=== PATIENT | male | born 1960 | race Caucasian/White ===

== ENCOUNTER 2021-03-09 10:09 | Emergency (ER) | payer OTHER, SELFPAY ==
[2021-03-09 10:16] VITALS: BP 126/92; PULSE 101; RESP 16; TEMP 36.3; O2SAT 98
--- NOTE | 2021-03-09 10:53 | ED.UPPEXIN ---
HPI - Extremity Injury (Upper) General Chief Complaint: Extremity Injury, Upper Stated Complaint: rt arm pain Source: patient and RN notes reviewed Mode of arrival: ambulatory History of Present Illness HPI narrative: This is a 60-year-old male who presented to urgent care with complaints of pain to his right extremity. Patient does have a history of tendinitis to his left arm. 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 According to patient last Wednesday he was wrenching when he started to experience. According to patient he did experience throbbing and later noticed his right wrist was swollen. He notes that the pain migrated up to his shoulder and right chest wall. Patient also notes that his fingertips became numb. He notes that he has discomfort in his chest every with movement only. the patient denies SOB, CP, palpitation, extremity numbness, lightheadedness, dizziness, constipation, diarrhea, chills, or fever. Patient notes that he did have two prednisone at home he took 2 of those. MD complaint: injury to: right Related Data Allergies Allergy/AdvReac Type Severity Reaction Status Date / Time Penicillins Allergy Unknown rash Verified 12/27/19 16:15 Review of Systems Review of Systems: A 14 organ system Review of Systems was performed and pertinent positives included in the HPI, otherwise remaining ROS is negative. [facility], LAT[facility] Past Medical History Medical History (Updated 03/09/21 @ 10:53 by KIKO Verduzco) GERD (gastroesophageal reflux disease) HLD (hyperlipidemia) Family History Family History Mother Depression Grandparent Heart disease Sibling Depression Social History Social History Smoking status: Former smoker Alcohol intake: current Alcohol use details: daily Substance use: never Exam Narrative: GENERAL: This is a well-nourished, well-developed patient, in no apparent distress. HEAD: normocephalic, atraumatic. EYES: PERRL. Sclera clear/white. Vision is grossly intact. EARS: External ears normal, auditory canals clear and without drainage, TMs normal without perforation. Hearing grossly intact. NOSE: External nose normal with no obvious nasal discharge, nares without redness, no rhinorrhea. THROAT: Mucous membranes moist, posterior pharynx clear. NECK: Neck supple, non-tender without lymphadenopathy, masses or thyromegaly. CARDIOVASCULAR: Regular rate and rhythm without murmurs, gallops, or rubs. RESPIRATORY: Clear to auscultation. Breath sounds equal bilaterally. No wheezes, rales, or rhonchi. GASTROINTESTINAL: Abdomen soft, non-tender, nondistended. Bowel sounds are active. No hepato-splenomegaly, or palpable masses. No guarding. SKIN: warm, intact with no suspicious lesions or rash, good texture and turgor. NEURO: awake, alert, and oriented to person, place and time. There were no obvious focal neurologic abnormalities. Steady gait EXTREMITIES: Normal range of motion. No edema. No calf tenderness. Negative Homans sign bilaterally. pain with extension of the left arm. tenderness with palpitation under the right armpit. BACK: Nontender without deformity or crepitance. No flank tenderness. Course Course Emergency Course: Discharge with flexeril, prednisone, norco. dx with mucsle sprain and strain Vital Signs Vital signs: Vital Signs Temperature 97.3 F L 03/09/21 10:16 Pulse Rate 101 H 03/09/21 10:16 Respiratory Rate 16 03/09/21 10:16 Blood Pressure 126/92 H 03/09/21 10:16 Pulse Oximetry 98 03/09/21 10:16 Temperature 97.3 F L 03/09/21 10:16 Pulse Rate 101 H 03/09/21 10:16 Respiratory Rate 16 03/09/21 10:16 Blood Pressure 126/92 H 03/09/21 10:16 Pulse Oximetry 98 03/09/21 10:16 MDM - Extremity Injury (Upper) Differential Diagnosis Differential diagnosis: Likely sprain and strain of wrist,
== END 2021-03-09 11:30 | disposition home or self-care (01) ==
PROVIDERS: Emergency Provider Nurse Practitioner; PCP Family Medicine
DX: S46.911A Strain of unspecified muscle, fascia and tendon at shoulder and upper arm level, right arm, initial encounter (principal); X58.XXXA Exposure to other specified factors, initial encounter; Z20.822 Contact with and (suspected) exposure to COVID-19; K21.9 Gastro-esophageal reflux disease without esophagitis; E78.5 Hyperlipidemia, unspecified; Z87.891 Personal history of nicotine dependence
CPT/HCPCS: 99213; G0463

== ENCOUNTER 2021-09-01 01:01 | Day surgery (SDC) | payer OTHER, SELFPAY ==
[2021-08-14 12:28] VITALS: BMI 25.8
--- NOTE | 2021-09-01 07:29 | WPDANESEPPF ---
Anes - Initial Pre Proc Eval Procedure: Operation Date: 09/01/21 10:45 Proposed Procedures p Colonoscopy - Michele Hugo MD Date/Time: 09/01/21 07:29 Surgeon: Michele Hugo MD Pre Op Diagnosis: positive cologuard Patient Data Age: 60 Gender: M Height: 1.8 m Weight: 84 kg Allergies Allergy/AdvReac Type Severity Reaction Status Date / Time Penicillins Allergy Unknown rash Verified 09/01/21 10:16 Home Medications Medication Instructions Recorded Confirmed Type omeprazole magnesium 20 mg 20 mg PO DAILY #90 tabs 01/05/21 08/14/21 Rx tablet,delayed release (Prilosec OTC) clotrimazole-betamethasone 1 1 applic topical BID #45 grams 06/24/21 08/14/21 Rx %-0.05 % topical cream sodium sul 1.479 gram-potas ch See Rx Instructions PO PER PKG DIR 08/12/21 08/14/21 Rx 0.188 gram-magnes sul 0.225 gram #24 tabs tablet (Sutab) Patient hx anesthesia problems: none Family hx anesthesia problems: none Results Review: All pre-operative results and documents have been reviewed as part of the pre-operative evaluation. [facility] Past Medical History Medical History (Updated 09/01/21 @ 08:32 by Michele Hugo MD) GERD (gastroesophageal reflux disease) HLD (hyperlipidemia) Positive colorectal cancer screening using Cologuard test Family History Family History Mother Depression Grandparent Heart disease Sibling Depression Social History Social History (Updated 08/06/21 @ 14:25 by Debi Hyatt CMA) Smoking packs per day: 1 Smoking cigarettes per day: 20.0 Years smoked: 7 Smoking pack-years: 7.00 Smoking status: Former smoker Tobacco type: cigarettes Alcohol intake: current Drinks per week: 28 Alcohol use details: BEER/WINE Substance use: never Substance use type: does not use Living arrangements: with family Spiritual care concerns: No Anes - Eval Final PreProcedure Day of Procedure 09/01/21 07:29 Patient weight: overweight Heart: regular rate and rhythm Lungs: clear to auscultation Airway: Mallampati scale class II Neurological: alert and oriented Last oral intake: >/= 8 hours ASA classification: III Emergent: no Anesthetic plan: proceed Anesthesia type and monitoring: general GIVS and standard monitoring Results Review: All pre-operative results and documents have been reviewed as part of the pre-operative evaluation. Informed Consent: The patient's anesthetic plan and its attendant risks and benefits were discussed with the patient/family/POA. Questions were solicited and answers provided to the satisfaction of the patient/family/POA.
--- NOTE | 2021-09-01 08:31 | PM.HPGS ---
History of Present Illness History of Present Illness Consent: Risks, benefits, and alternatives have been discussed and questions answered. Patient agrees to proceed with procedure. Chief complaint: positive cologuard Narrative: Matty Layton is a 60 year old male referred for colonoscopy due to the fact that he had a positive Cologuard test. Review of Systems Review of Systems: All systems reviewed & are unremarkable except as noted in HPI and below PMFSH Past Medical History Medical History GERD (gastroesophageal reflux disease) HLD (hyperlipidemia) Positive colorectal cancer screening using Cologuard test Family History Family History Mother Depression Grandparent Heart disease Sibling Depression Social History Social History Smoking packs per day: 1 Smoking cigarettes per day: 20.0 Years smoked: 7 Smoking pack-years: 7.00 Smoking status: Former smoker Tobacco type: cigarettes Alcohol intake: current Drinks per week: 28 Alcohol use details: BEER/WINE Substance use: never Substance use type: does not use Living arrangements: with family Spiritual care concerns: No Meds Home Medications and Allergies Home Medications Medication Instructions Recorded Confirmed Type omeprazole magnesium 20 mg 20 mg PO DAILY #90 tabs 01/05/21 08/14/21 Rx tablet,delayed release (Prilosec OTC) clotrimazole-betamethasone 1 1 applic topical BID #45 grams 06/24/21 08/14/21 Rx %-0.05 % topical cream sodium sul 1.479 gram-potas ch See Rx Instructions PO PER PKG DIR 08/12/21 08/14/21 Rx 0.188 gram-magnes sul 0.225 gram #24 tabs tablet (Sutab) Allergies Allergy/AdvReac Type Severity Reaction Status Date / Time Penicillins Allergy Unknown rash Verified 09/01/21 10:16 Exam Resp: Auscultation: clear to auscultation bilaterally Cardio: Rate: regular rate Rhythm: regular rhythm GI: GI Palp: Yes Soft to palpation and No Tenderness to palpation present (GI) Assessment and Plan Assessment and plan (1) Colon cancer screening: Code(s): Z12.11 - Encounter for screening for malignant neoplasm of colon Status: Acute Assessment and Plan: Colonoscopy with possible biopsy or polypectomy or cautery or injection of substances.
[2021-09-01 10:17] VITALS: BP 125/70; PULSE 57; RESP 20; TEMP 36.6; O2SAT 99
[2021-09-01] MEDS: LACTATED RINGERS 1,000 ML 150 ML IV CONT (10:28)
[2021-09-01] MEDS: SIMETHICONE ORAL SUSPENSION 20 MG/0.3 ML 30 ML BOTTLE 0.6 ML IRRIGATION (11:27)
[2021-09-01 11:34] VITALS: BP 100/60; PULSE 68; RESP 24; O2SAT 99
[2021-09-01 11:44] VITALS: BP 107/64; PULSE 55; RESP 24; O2SAT 99
[2021-09-01 11:54] VITALS: BP 124/73; PULSE 47; RESP 14; O2SAT 98
== END 2021-09-01 12:00 | disposition home or self-care (01) ==
PROVIDERS: PCP Family Medicine; Visit Provider Internal Medicine Gastroenterology
PROC: 0DJD8ZZ Inspection of Lower Intestinal Tract, Via Natural or Artificial Opening Endoscopic (ICD-10-PCS; CPT 45378; principal; 2021-09-01 10:45)
DX: Z12.11 Encounter for screening for malignant neoplasm of colon (principal); K57.30 Diverticulosis of large intestine without perforation or abscess without bleeding; R19.5 Other fecal abnormalities; K21.9 Gastro-esophageal reflux disease without esophagitis; E78.5 Hyperlipidemia, unspecified; Z87.891 Personal history of nicotine dependence
CPT/HCPCS: 45378; J2704; J7120

== ENCOUNTER 2023-02-16 02:31 | Emergency (ER) | payer OTHER, SELFPAY ==
--- NOTE | ~2023-02-16 | CT_ITS ---
CT of the Abdomen and Pelvis: Indication: Abdominal pain Technique: 2.5 mm axial scans were obtained through the abdomen and pelvis following intravenous adm inistration of 100 cc of Omnipaque 350. Dose reduction technique was used on this scan by utilizing a utomated exposure control and iterative reconstruction technique. The dose-length product (DLP) was 7 36.93 mGy-cm. Findings: Scans through the lung bases are unremarkable. The liver, spleen, pancreas, adrenals and right kidney are within normal limits. Small gallstones are present. Questionable minimal gallbladder wall thickening. Left parapelvic renal cysts are present. There are atherosclerotic calcifications of the aorta. No lymphadenopathy. No bowel obstruction or bowel wall thickening. There is no evidence to suggest acute appendicitis. Th ere is a 5.2 cm retroperitoneal lipoma just left of the aorta (axial image 103). Images through the pelvis were performed. Urinary bladder unremarkable. Prostate gland mildly enlarge d. No ascites. Impression: Cholelithiasis. Questionable minimal gallbladder wall thickening. If there is clinical concern for [place] cholecystitis, consider HIDA scan. 5.2 cm retroperitoneal lipoma, as detailed above. Reviewed, dictated and finalized at location M. RNATIONAL RECRUITER Impression: Cholelithiasis. Questionable minimal gallbladder wall thickening. If there is c linical concern for acute cholecystitis, consider HIDA scan. 5.2 cm retroperitoneal lipoma, as detailed above.
[2023-02-16 02:49] VITALS: BP 172/89; PULSE 62; RESP 15; TEMP 36.3; O2SAT 100
[2023-02-16 02:49] LABS: Basophils Percent Auto 0.3 % (0.2-1.2); Eosinophils Absolute Auto 0.2 K/mm3 (0-0.3); Eosinophils Percent Auto 1.7 % (0-4.4); Hematocrit 42.9 % (42.0-52.0); Hemoglobin 14.3 g/dL (14.0-18.0); Immature Granulocyte Absolute 0.03 K/mm3 (0.00-0.031); Immature Granulocyte Percent A 0.3 % (0-0.5); Lymphocytes Absolute Auto 2.16 K/mm3 (0.9-3.2); Lymphocytes Percent Auto 20.4 % (18.3-44.2); Mean Corpuscular HGB Conc 33.3 g/dl (32-36); Mean Corpuscular Hemoglobin 31.2 pg (26-34); Mean Corpuscular Volume 93.7 fl (80-100); Mean Platelet Volume 10.7 fl (7.4-10.4); Monocytes Absolute Auto 0.5 K/mm3 (0.1-0.6); Neutrophils Absolute Auto 7.6 K/mm3 (1.3-6.7); Neutrophils Percent Auto 72.3 % (45.5-73.1); Platelet Count Result 180 k/mm3 (150-375); Red Blood Count 4.58 M/mm3 (4.6-6.20); Red Cell Distribution Width 12.7 % (11.5-14.5); White Blood Count 10.6 K/mm3 (4.5-10.0)
[2023-02-16 02:58] LABS: Alanine Aminotransferase 28 U/L (6-50); Albumin Level 4.8 g/dL (3.5-5.1); Alkaline Phosphatase 62 U/L (38-126); Anion Gap 10 mmol/L (8-16); Aspartate Amino Transferase 24 U/L (17-59); Bilirubin,Total 0.5 mg/dL (0.2-1.3); Blood Urea Nitrogen 19 mg/dL (9-20); Calcium 9.2 mg/dL (8.4-10.2); Carbon Dioxide 28 mmol/L (22-30); Chloride 103 mmol/L (98-107); Estimated CRCL calculation 64 ml/min; Estimated Glomerular Filt Rate > 60; Glucose 136 mg/dL (65-110); Lipase 85 U/L (23-300); Sodium 141 mmol/L (137-145)
[2023-02-16 04:06] VITALS: BP 141/65; PULSE 65; RESP 16; TEMP 36.3; O2SAT 99
--- NOTE | 2023-02-16 04:13 | ED.ABDPAIN ---
HPI - Abdominal Pain General Chief Complaint: Abdominal Pain Stated Complaint: abdominal pain Time Seen by Provider: 02/16/23 04:08 History of Present Illness HPI narrative: Patient is a 62-year-old male history of hyperlipidemia presenting with abdominal pain. Patient states that she in severe right upper quadrant pain last night associated with several episodes of emesis. He became concerned about his gallbladder as his brothers have gallbladder problems. States that the pain has now improved as has the nausea. No diarrhea. No fevers or chills, chest pain, shortness of breath, cough, flank pain, dysuria. No further complaints. Related Data Allergies Allergy/AdvReac Type Severity Reaction Status Date / Time Penicillins Allergy Unknown rash Verified 02/17/23 10:55 Review of Systems Review of Systems: All systems reviewed & are unremarkable except as noted in HPI and below PMFSH Past Medical History Medical History GERD (gastroesophageal reflux disease) HLD (hyperlipidemia) Positive colorectal cancer screening using Cologuard test Family History Family History Mother Depression Grandparent Heart disease Sibling Depression Social History Social History Smoking packs per day: 1 Smoking cigarettes per day: 20.0 Years smoked: 7 Smoking pack-years: 7.00 Smoking status: Former smoker Tobacco type: cigarettes Alcohol intake: current Drinks per week: 28 Alcohol use details: BEER/WINE Substance use: never Substance use type: does not use Lack of Transportation: No Lack of Food: Never True Current Housing: I Have Housing Concerned About Future Housing: No Difficulty Paying Gas/Electric Bills: No Difficulty Paying for Meds: No Currently Unemployed: No Education: Trade/Vocational Certificate Difficulty w/ Childcare or Family Care: No Living arrangements: with family Occupation/Education: retired Gender identity (if verbalized by the patient): Male Spiritual care concerns: No Agree to blood products: Yes Exam Narrative: GENERAL: Well-appearing, In no acute distress, pleasant cooperative HEAD: Normocephalic, atraumatic. EYES: PERRLA and EOMI. ENT: Mucous membranes moist. NECK: Supple. CHEST: Clear to auscultation. No respiratory distress. HEART: Regular rate and rhythm. ABDOMEN: Soft, +RUQ tenderness without guarding or rebound EXTREMITIES: Normal range of motion. SKIN: Warm, dry, no rash. NEURO: No focal deficits. Alert and oriented x3. PSYCH: Normal mood and affect. Course Vital Signs Vital signs: Vital Signs Temperature 97.3 F L 02/16/23 02:49 Pulse Rate 62 02/16/23 02:49 Respiratory Rate 15 02/16/23 02:49 Blood Pressure 172/89 H 02/16/23 02:49 Pulse Oximetry 100 02/16/23 02:49 Oxygen Delivery Room Air 02/16/23 02:49 Temperature 97.4 F L 02/16/23 04:06 Pulse Rate 73 02/16/23 05:16 Respiratory Rate 15 02/16/23 05:16 Blood Pressure 138/72 02/16/23 05:16 Pulse Oximetry 100 02/16/23 05:16 Oxygen Delivery Room Air 02/16/23 02:49 MDM - Abdominal Pain MDM Narrative Medical decision making narrative: 62-year-old male presenting with right upper quadrant pain. Vitals are stable. Exam remarkable for the above. Blood work with mild leukocytosis. LFTs are normal. He declines pain or nausea medicines at this time. CT abdomen pelvis with cholelithiasis. There is questionable gallbladder wall thickening. On re-evaluation, the patient denies any further pain. He states that his symptoms have not returned. His abdomen is soft and benign. I do not think this represents acute cholecystitis especially in the setting of normal blood work. Suspect biliary colic as the cause of his painful episode earlier. Feel he is safe for outpatient m
[2023-02-16] MEDS: SODIUM CHLORIDE 0.9% IV 1,000 ML 999 ML IV CONT (04:28)
[2023-02-16 05:16] VITALS: BP 138/72; PULSE 73; RESP 15; O2SAT 100
[2023-02-16 06:17] LABS: Appearance Urine Clear (Clear); Bilirubin Urine Negative (Negative); Blood Urine Negative (Negative); Color Urine Yellow (Yellow); Glucose Urine UA Negative (Negative); Ketones Urine Negative (Negative); Leukocyte Esterase Ur Negative LEU/UL (Negative); Nitrate Urine Negative (Negative); Protein Urine Negative (Negative); Urobilinogen Urine 0.2 mg/dL (<2.0); pH Urine 5.5 (5.0-9.0)
[2023-02-16 07:22] LABS: Specific Grav Ur 1.072 (1.001-1.035)
[2023-02-16 07:23] LABS: Add Urine Microscopic? NO
== END 2023-02-16 06:35 | disposition home or self-care (01) ==
PROVIDERS: Emergency Provider Emergency Medicine; PCP Family Medicine
DX: K80.20 Calculus of gallbladder without cholecystitis without obstruction (principal); F17.210 Nicotine dependence, cigarettes, uncomplicated; K21.9 Gastro-esophageal reflux disease without esophagitis; E78.5 Hyperlipidemia, unspecified
CPT/HCPCS: 36415; 74177; 80053; 81003; 83690; 85025; 96360; 99284; J7030; Q9967

== ENCOUNTER 2023-02-25 09:44 | Outpatient (CLI) | payer OTHER, SELFPAY ==
--- NOTE | 2023-02-25 10:29 | ECG_ITS ---
Measurements Intervals [place] Rate: 78 P: 56 WA: 178 QRS: 29 QRSD: 92 T: 18 QT: 358 QTc: 408 Interpretive Statements SINUS RHYTHM CANNOT RULE OUT INFERIOR MYOCARDIAL INFARCTION ABNORMAL ECG NO PREVIOUS ECG AVAILABLE FOR COMPARISON Electronically Signed On 02-25-2023 14:05:41 THORACIC SURGEON by Jeromy Leger M.D.
[2023-02-25 10:54] LABS: Alanine Aminotransferase 137 U/L (6-50); Albumin Level 4.1 g/dL (3.5-5.1); Alkaline Phosphatase 238 U/L (38-126); Amylase 58 U/L (30-110); Aspartate Amino Transferase 89 U/L (17-59); Bilirubin,Total 0.4 mg/dL (0.2-1.3); Lipase 109 U/L (23-300)
== END 2023-02-25 09:45 | disposition home or self-care (01) ==
PROVIDERS: PCP Family Medicine; Visit Provider Surgery
DX: Z01.818 Encounter for other preprocedural examination (principal); R94.31 Abnormal electrocardiogram [ECG] [EKG]; R93.1 Abnormal findings on diagnostic imaging of heart and coronary circulation; E78.5 Hyperlipidemia, unspecified; K80.10 Calculus of gallbladder with chronic cholecystitis without obstruction
CPT/HCPCS: 36415; 80076; 82150; 83690; 86850; 86900; 86901; 93005

== ENCOUNTER 2023-03-01 17:17 | Observation (INO) | payer OTHER, SELFPAY ==
[2023-02-24 13:47] VITALS: BMI 27.1
--- NOTE | 2023-02-24 14:03 | PC.NURSE ---
Report to the Outpatient Waiting Room, entrance under the green pavilion located off [facility], at time __11:30_AM____ on date 03/01/23 . Planned Procedure Time: _1:30PM . Time changes happen often and if your time is changed the preop area will call you the afternoon before. - You and your TWO visitors will be asked to self-screen and do not enter if you have any COVID symptoms. - A mask is optional within the hospital at this time. Patients may have clear liquids (water, carbonated beverages, clear teas, apple juice) until 3 hours prior to surgery with a maximum of 20 ounces. - No food from midnight until time of surgery - Take the following medications with a SIP of water the morning of surgery: ____NO MEDS DO NOT STOP ANY OF YOUR OTHER PRESCRIPTION MEDICATIONS PRIOR TO SURGERY ?EXCEPT THE FOLLOWING Medications to discontinue per physician NONE Date to take last dose___NONE Please no make-up, nail kiswahili, hairspray, perfume, deodorant, or body powder the day of surgery. No jewelry (including any body piercings) or valuables the day of surgery, leave them at home. Please take a shower or bath the night before, or the morning of, surgery with an antibacterial soap. Wear comfortable, loose fitting clothing. - Jewelry must be removed prior to entering the operating room. Rings and piercings that are not removed may be cut off. - The hospital will not accept responsibility for valuables. - Please leave all valuables, including medications, at home the day of surgery. If you are going home after surgery, a licensed pizza delivery driver must drive you home. - NO public transportation without another adult if you receive anesthesia. - We recommend that an adult stay with you for 24 hours following discharge. - We also recommend that you do not drive, make important decision, drink alcoholic beverages, or take any drugs that were not prescribed by your health care provider for at least 24 hours after your discharge time. Follow any additional instructions given to you from your surgeon. If you or anyone in your household have experienced Covid symptoms in the past week, please notify your surgeon or the nurse liaison at the phone number below for possible testing. Telephone instructions given to __CURT and asked if any additional questions and then verbalized understanding. Patient advised to call surgeon office or pre surgery nurse liaison [phone] if any additional questions.
[2023-03-01] VITALS (12 sets, daily range): BP systolic 110–139; BP diastolic 70–78; PULSE 74–89; RESP 8–20; TEMP 36.4–36.6; O2SAT 94–99
--- NOTE | ~2023-03-01 | XR_ITS ---
EXAMINATION: XR cholangiogram surg 1st inj DATE: 03/01/2023 15:20 INDICATION: Intraoperative cholangiogram TECHNIQUE: 151 fluoroscopic images of the right upper quadrant were obtained during intraoperative ch olangiography performed by the surgeon. I was not present in the operating room. Fluoroscopy exposure time was 22.6 seconds. COMPARISON: None. FINDINGS: There is ill-defined injected contrast in the right upper quadrant. The common bile duct is not clearly opacified. This was communicated to Dr. Vargas in the operating room. IMPRESSION: 1. Common bile duct is not clearly opacified. 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
[2023-03-01] MEDS: ACETAMINOPHEN 500 MG TABLET 1000 MG PO (11:30)
[2023-03-01] MEDS: LACTATED RINGERS 1,000 ML 30 ML IV CONT ×2 (11:56→15:49)
[2023-03-01] MEDS: KETOROLAC 15 MG/ML VIAL (*BKC) IV PUSH (11:59)
--- NOTE | 2023-03-01 12:05 | WPDANESEPPF ---
Anes - Initial Pre Proc Eval Procedure: Operation Date: 03/01/23 13:30 Proposed Procedures p Laparoscopic Cholecystectomy - Sudha Vargas MD Date/Time: 03/01/23 12:05 Surgeon: Sudha Vargas MD Pre Op Diagnosis: cholecystitis with cholelithiasis Patient Data Age: 62 Gender: M Height: 1.79 m Weight: 84.6 kg Last Vital Signs Temp 36.4 C 03/01/23 11:54 Pulse 76 03/01/23 11:54 Resp 16 03/01/23 11:54 BP 118/72 03/01/23 11:54 Pulse Ox 98 03/01/23 11:54 O2 Del Method Room Air 03/01/23 11:54 Allergies Allergy/AdvReac Type Severity Reaction Status Date / Time Penicillins Allergy Unknown rash Verified 03/01/23 11:26 Home Medications Medication Instructions Recorded Confirmed Type simvastatin 10 mg tablet 10 mg PO DAILY #90 tabs 09/16/22 02/24/23 Rx omeprazole magnesium 20 mg 20 mg PO DAILY #90 caps 10/20/22 02/24/23 Rx capsule,delayed release Laboratory Tests 03/01/23 11:50 Total Bilirubin Pending Direct Bilirubin Pending AST Pending ALT Pending Alkaline Phosphatase Pending Total Protein Pending Albumin Pending Patient hx anesthesia problems: none Family hx anesthesia problems: none Results Review: All pre-operative results and documents have been reviewed as part of the pre-operative evaluation. COUNT INCLUDES THE [facility] Past Medical History Medical History GERD (gastroesophageal reflux disease) HLD (hyperlipidemia) Positive colorectal cancer screening using Cologuard test Family History Family History Mother Depression Grandparent Heart disease Sibling Depression Social History Social History Smoking packs per day: 1 Smoking cigarettes per day: 20.0 Years smoked: 7 Smoking pack-years: 7.00 Smoking status: Former smoker Tobacco type: cigarettes Second hand tobacco smoke exposure: No Alcohol intake: current Drinks per week: 28 Alcohol use details: 4 DRINKS/NOC Substance use: never Substance use type: does not use Last use: 1979 Lack of Transportation: No Lack of Food: Never True Current Housing: I Have Housing Concerned About Future Housing: No Difficulty Paying Gas/Electric Bills: No Difficulty Paying for Meds: No Currently Unemployed: No Education: Trade/Vocational Certificate Difficulty w/ Childcare or Family Care: No Living arrangements: with family Occupation/Education: retired Gender identity (if verbalized by the patient): Male Spiritual care concerns: No Agree to blood products: Yes Anes - Eval Final PreProcedure Day of Procedure 03/01/23 12:05 Patient weight: normal Heart: regular rate and rhythm Lungs: clear to auscultation Airway: Mallampati scale class II Neurological: alert and oriented Last oral intake: >/= 8 hours ASA classification: II Emergent: no Anesthetic plan: proceed Anesthesia type and monitoring: general ETT and standard monitoring Results Review: All pre-operative results and documents have been reviewed as part of the pre-operative evaluation. Informed Consent: The patient's anesthetic plan and its attendant risks and benefits were discussed with the patient/family/POA. Questions were solicited and answers provided to the satisfaction of the patient/family/POA.
--- NOTE | 2023-03-01 12:07 | WPDHPUPDATE1 ---
History and Physical Update Update Date/Time: 03/01/23 12:07 History and Physical has been reviewed, including an updated exam of the patient. There are NO changes in the patient's condition. Risks, benefits, and alternatives have been discussed and questions answered. Patient agrees to proceed with procedure.
[2023-03-01 12:11] LABS: Alanine Aminotransferase 88 U/L (6-50); Albumin Level 4.4 g/dL (3.5-5.1); Alkaline Phosphatase 152 U/L (38-126); Aspartate Amino Transferase 34 U/L (17-59); Bilirubin,Total 0.4 mg/dL (0.2-1.3)
[2023-03-01] MEDS: ceFAZolin 2 GM/D5W 50 ML 2 GM/50 ML BAG IVPB (13:23)
[2023-03-01] MEDS: BUPIVACAINE/EPINEPHRINE 0.5% 50 ML VIAL 30 ML INFILTRATE (13:48)
--- NOTE | 2023-03-01 15:50 | W.PM.PROC2 ---
Procedure Note - Detailed Date of Procedure 03/01/23 Pre-op Diagnosis cholecystitis with cholelithiasis Post-op Diagnosis Other (Acute suppurative gangrenous cholecystitis with cholelithiasis) Procedure Performed laparoscopic cholecystectomy, extensive lysis of adhesions, attempted cholangiogram x2 Surgeon Sudha Vargas MD Speeder Operator Wikimarisa Anesthesia General Indications 62-year-old male presenting to the office complaining of severe postprandial right upper quadrant abdominal pain associated with nausea, vomiting, bloating. The patient had previously been to the ER for severe symptomatology. Workup, including imaging, significant for cholecystitis, cholelithiasis. Findings Acute suppurative, gangrenous cholecystitis with cholelithiasis, a significant amount of friability and induration at the area of the cystic duct and causing avulsion of the cystic duct during dissection, unsuccessful cholangiogram secondary to leakage and induration Description of Procedure The patient was taken to the operating room placed in the supine position. After adequate induction of general anesthesia, the patient was prepped and draped in normal sterile fashion. A time-out was then performed to verify the patient's identity as well as the procedure being performed. I then made a 5 mm incision in the infraumbilical region. Through this, a Veress needle was placed into the peritoneal cavity and CO2 gas was then insufflated. After adequate pneumoperitoneum was achieved, the Veress needle was removed and a 5 mm optiview trocar was placed through this incision under direct visualization. I then placed the laparoscope through this trocar site and under direct visualization placed a further 12 mm subxiphoid port as well as 2 additional 5 mm ports in the right upper abdomen. At this point, a inflammatory mass was noted in the right upper quadrant. This was covered with omentum and very indurated. Using very tedious dissection, both bluntly and with the Bovie cautery, we were able to slowly take down these omental adhesions and expose the gallbladder. The gallbladder was then identified and was noted to be severely inflamed, distended, and full of gallstones. I was able to place a grasper at the dome of the gallbladder and this was retracted anterior and cephalad up over the liver. A 2nd retractor was then placed at the infundibulum and retracted laterally, this allowed visualization of the triangle of Calot. The area of the triangle of Calot was very indurated and dissection was very difficult. Upon bluntly dissecting this area there was noted to be purulent drainage and multiple small stones. Given the difficulty identifying the anatomy, I called for my partners to assist in the case. Dr. Flannery and Dr. Elizalde graciously came in interoperatively to assist. Given the avulsion of likely the cystic duct, the decision was made to attempt a cholangiogram. Using the standard cholangiogram catheter, we were able to gain access to the duct, however, upon trying to flush there was significant leakage of the contrast. A 2nd attempt was made using a Sanchez clamp, however the area was so indurated we were unable to flush through the needle. We then continued dissection along the cystic duct and were largely comfortable with the anatomy. I then was able to visualize the cystic duct in its entirety from its proximal insertion into the gallbladder, to its distal junction with the common hepatic/common bile duct junction. At this point, I carefully skeletonized the proximal cystic duct with the [place] dissector. I then clipped and transected the proximal cystic duct. Next I visualized the cystic artery. Again the artery was skeletonized, clipped, and transected. I then used the Bovie cautery to take down the peritoneal attachments of the gallbladder off the liver bed. This was very difficult given the amount of inflammation in the posterior space. It was also noted at this point the
[2023-03-01] MEDS: fentaNYL CITRATE INJ (*CRX) 100 MCG/2 ML VIAL 25 MCG IV PUSH ×6 (16:12→17:00)
--- NOTE | 2023-03-01 17:40 | ADMGEN ---
This patient, Matty Layton, was admitted to Medical Room 349-01. Patient/family oriented to hospital policies and general routines including ID bracelet, bed and alarms, visiting hours, pain management, procedures, bathroom and other care routines, personal items, smoking policy, room service/diet, and visiting hours. Information on how to activate the Rapid Response Team has been discussed. Patient/Family are encouraged to report perceived risks to care and to ask questions if they do not understand what they are told or what they should do.
[2023-03-01] MEDS: LACTATED RINGERS 1,000 ML 100 ML IV CONT (17:46)
[2023-03-01] MEDS: CIPROFLOXACIN 400 MG/D5W 200ML 200 ML 200 MG IVPB (17:47)
[2023-03-01] MEDS: metroNIDAZOLE 500 MG/ISO 100ML 500 MG/100 ML BAG 100 MG IVPB (17:49)
[2023-03-01] MEDS: HYDROcodone/acetaminophen (*CRX) 5-325 MG TABLET 1 TAB PO (20:23)
[2023-03-02] MEDS: metroNIDAZOLE 500 MG/ISO 100ML 500 MG/100 ML BAG 100 MG IVPB ×3 (01:53→17:34)
[2023-03-02] MEDS: HYDROcodone/acetaminophen (*CRX) 5-325 MG TABLET 1 TAB PO ×3 (02:14→20:06)
[2023-03-02 02:41] VITALS: BP 127/80; PULSE 84; RESP 18; TEMP 37.1; O2SAT 95
[2023-03-02] MEDS: CIPROFLOXACIN 400 MG/D5W 200ML 200 ML 200 MG IVPB ×2 (05:11→17:32)
[2023-03-02] MEDS: ONDANSETRON INJ 4 MG/2 ML VIAL IV PUSH ×2 (05:11→17:31)
[2023-03-02 05:57] LABS: Hematocrit 36.9 % (42.0-52.0); Hemoglobin 12.2 g/dL (14.0-18.0); Mean Corpuscular HGB Conc 33.1 g/dl (32-36); Mean Corpuscular Hemoglobin 30.5 pg (26-34); Mean Corpuscular Volume 92.3 fl (80-100); Mean Platelet Volume 9.4 fl (7.4-10.4); Platelet Count Result 392 k/mm3 (150-375); Red Cell Distribution Width 12.7 % (11.5-14.5); White Blood Count 14.4 K/mm3 (4.5-10.0)
[2023-03-02 06:04] LABS: Alanine Aminotransferase 68 U/L (6-50); Albumin Level 3.6 g/dL (3.5-5.1); Alkaline Phosphatase 128 U/L (38-126); Anion Gap 7 mmol/L (8-16); Aspartate Amino Transferase 48 U/L (17-59); Bilirubin,Total 0.4 mg/dL (0.2-1.3); Blood Urea Nitrogen 14 mg/dL (9-20); Calcium 8.7 mg/dL (8.4-10.2); Carbon Dioxide 27 mmol/L (22-30); Chloride 104 mmol/L (98-107); Estimated CRCL calculation 71 ml/min; Estimated Glomerular Filt Rate > 60; Glucose 129 mg/dL (65-110); Potassium 3.8 mmol/L (3.4-5.0); Sodium 138 mmol/L (137-145)
[2023-03-02 07:02] VITALS: BP 121/67; PULSE 79; RESP 16; TEMP 36.7; O2SAT 94
--- NOTE | 2023-03-02 09:07 | PM.PNGS ---
Progress Note: A&P Assessment and Plan (1) Cholecystitis with cholelithiasis: Qualifiers: Cholelithiasis location: gallbladder Cholecystitis acuity: unspecified acuity Biliary obstruction: without biliary obstruction Qualified Code(s): K80.10 - Calculus of gallbladder with chronic cholecystitis without obstruction Code(s): K80.10 - Calculus of gallbladder with chronic cholecystitis without obstruction Status: Acute Assessment and Plan: still c significant incisional soreness, will add Toradol scheduled, encourage OOB/IS, likely dc drain prior to dc home, cont abx Subjective Subjective Date/Time Seen: 03/02/23 09:07 Interval history: feels very sore, bloated Review of Systems Review of Systems: All systems reviewed & are unremarkable except as noted in HPI and below Exam Const: General: cooperative, no acute distress and uncomfortable Resp: Auscultation: clear to auscultation bilaterally Cardio: Rate: regular rate Rhythm: regular rhythm GI: Inspection: normal to inspection, distended and incision GI Palp: Yes abdominal tenderness, Yes Soft to palpation, Yes Tenderness to palpation present (GI), No Guarding due to palpation present (GI) and No Rigid due to palpation Other: ARIES c mod s/s drainage Objective Data Vital Signs Vital Signs: Vital Signs - 24 hr 03/01/23 11:54 03/01/23 15:49 03/01/23 16:00 Temperature 36.4 C 36.4 C Pulse Rate 76 80 74 Respiratory Rate 16 8 L 12 Blood Pressure 118/72 139/76 125/77 Pulse Oximetry 98 98 99 Oxygen Delivery Room Air Simple Face Mask Simple Face Mask Oxygen Flow Rate 8 8 03/01/23 16:15 03/01/23 16:30 03/01/23 16:45 Temperature Pulse Rate 75 78 78 Respiratory Rate 14 12 14 Blood Pressure 122/78 118/70 110/73 Pulse Oximetry 97 98 94 Oxygen Delivery Simple Face Mask Simple Face Mask Room Air Oxygen Flow Rate 6 6 03/01/23 17:00 03/01/23 17:15 03/01/23 17:32 Temperature 36.5 C Pulse Rate 76 76 78 Respiratory Rate 12 12 16 Blood Pressure 111/74 120/72 127/77 Pulse Oximetry 94 95 99 Oxygen Delivery Nasal Cannula Nasal Cannula Oxygen Flow Rate 2 2 03/01/23 18:02 03/01/23 20:00 03/02/23 02:41 Temperature 36.4 C L 37.1 C Pulse Rate 81 81 84 Respiratory Rate 16 16 18 Blood Pressure 125/70 127/80 Pulse Oximetry 98 98 95 Oxygen Delivery Room Air Oxygen Flow Rate 03/01/23 22:15 03/02/23 07:02 Temperature 36.6 C 36.7 C Pulse Rate 89 79 Respiratory Rate 20 16 Blood Pressure 127/76 121/67 Pulse Oximetry 99 94 Oxygen Delivery Oxygen Flow Rate Intake/Output Intake/Output: Intake & Output 02/27/23 02/28/23 03/01/23 03/02/23 23:59 23:59 23:59 23:59 Intake Total 550 300 Output Total 30 Balance 550 270 Meds/Results Medications: Active Medications Generic Name Dose Route Start Last Admin Trade Name Freq PRN Reason Stop Dose Admin Hydrocodone Bitart/Acetaminophen 1 tab 03/01/23 17:17 03/02/23 06:32 Hydrocodone/Acetaminophen (*Crx) 5-325 Mg Tablet PO 1 tab Q4H PRN Administration Pain Rated 4-6 Diphenhydramine HCl 25 mg 03/01/23 17:17 Diphenhydramine Hcl Inj 50 Mg/Ml Vial IV PUSH Q6H PRN Itching Enoxaparin Sodium 40 mg 03/02/23 09:00 Enoxaparin 40 Mg/0.4 Ml Syringe SUB-Q DAILY JARAD Ciprofloxacin/Dextrose 200 mls @ 200 mls/hr 03/01/23 18:00 03/02/23 06:11 Cipro 400 Mg/D5w 200 Ml IVPB Infused Q12H JARAD Infusion Metronidazole 500 mg in 100 mls @ 100 mls/hr 03/01/23 18:00 03/02/23 02:53 Flagyl 500 Mg/Iso Soln 100 Ml IVPB Infused Q8H JARAD Infusion Ketorolac Tromethamine 30 mg 03/02/23 09:00 Ketorolac 30 Mg/Ml Vial (*Bkc) IV PUSH Q6H JARAD Morphine Sulfate 2 mg 03/01/23 17:17 Morphine Sulfate (*Crx) 2 Mg/Ml Inj IV PUSH Q2H PRN Pain Rated 4-6 Morphine Sulfate 4 mg 03/01/23 17:17 Morphine Sulfate (*Crx) 4 Mg/Ml Inj IV PUSH Q2H PRN Pain Rated 7-10 Naloxone HCl 0.1 mg
[2023-03-02] MEDS: KETOROLAC 30 MG/ML VIAL (*BKC) IV PUSH ×2 (09:18→14:04)
[2023-03-02] MEDS: PANTOPRAZOLE 40 MG TABLET PO (09:18)
[2023-03-02] MEDS: SIMVASTATIN 10 MG TABLET PO (09:18)
[2023-03-02 12:00] VITALS: BP 113/61; PULSE 77; RESP 16; TEMP 36.6; O2SAT 98
--- NOTE | 2023-03-02 14:14 | WPDANESPN ---
Anes - Prog Note Post-Op Date/Time: 03/02/23 14:14 Cardiovascular status: normal Respiratory status: normal Airway patency: baseline Mental status: baseline Post-Op hydration status: normal Vital Signs: Last Vital Signs Temp 98.1 F 03/02/23 07:02 Pulse 79 03/02/23 07:02 Resp 16 03/02/23 07:02 BP 121/67 03/02/23 07:02 Pulse Ox 94 03/02/23 07:02 O2 Del Method Room Air 03/02/23 09:30 O2 Flow Rate 2 03/01/23 17:15 Pain Score (VAS): 0/10 I/O: Intake & Output 03/01/23 03/02/23 03/02/23 23:59 07:59 15:59 Intake Total 500 300 340 Output Total 30 Balance 500 270 340 Laboratory Tests 03/02/23 05:32 03/02/23 05:32 03/02/23 05:32 WBC 14.4 H RBC 4.00 L Hgb 12.2 L Hct 36.9 L MCV 92.3 MCH 30.5 MCHC 33.1 RDW 12.7 Plt Count 392 H D MPV 9.4 Sodium 138 Potassium 3.8 Chloride 104 Carbon Dioxide 27 Anion Gap 7 L BUN 14 D Creatinine 1.00 Estim Creat Clear Calc 71 Estimated GFR > 60 Glucose 129 H Calcium 8.7 Total Bilirubin 0.4 AST 48 ALT 68 H Alkaline Phosphatase 128 H Total Protein 6.0 L Albumin 3.6 Post-procedural complaints: none Patient Feedback: Patient satisfied with anesthetic care.
[2023-03-02] MEDS: MORPHINE SULFATE (*CRX) 2 MG/ML INJ IV PUSH ×2 (18:24→22:26)
[2023-03-02 22:00] VITALS: BP 118/71; PULSE 77; RESP 18; TEMP 36.2; O2SAT 95
[2023-03-03] MEDS: HYDROcodone/acetaminophen (*CRX) 5-325 MG TABLET 1 TAB PO ×4 (00:09→13:12)
[2023-03-03] MEDS: metroNIDAZOLE 500 MG/ISO 100ML 500 MG/100 ML BAG 100 MG IVPB ×2 (01:57→09:01)
[2023-03-03] MEDS: MORPHINE SULFATE (*CRX) 2 MG/ML INJ IV PUSH ×3 (02:05→11:20)
[2023-03-03 05:06] LABS: Hematocrit 38.1 % (42.0-52.0); Hemoglobin 12.2 g/dL (14.0-18.0); Mean Corpuscular Hemoglobin 30.4 pg (26-34); Mean Platelet Volume 9.6 fl (7.4-10.4); Platelet Count Result 369 k/mm3 (150-375); Red Blood Count 4.01 M/mm3 (4.6-6.20); Red Cell Distribution Width 13.1 % (11.5-14.5); White Blood Count 11.5 K/mm3 (4.5-10.0)
[2023-03-03 05:21] LABS: Alanine Aminotransferase 52 U/L (6-50); Albumin Level 3.5 g/dL (3.5-5.1); Alkaline Phosphatase 110 U/L (38-126); Anion Gap 6 mmol/L (8-16); Aspartate Amino Transferase 29 U/L (17-59); Bilirubin,Total 0.4 mg/dL (0.2-1.3); Blood Urea Nitrogen 11 mg/dL (9-20); Calcium 8.8 mg/dL (8.4-10.2); Carbon Dioxide 29 mmol/L (22-30); Chloride 104 mmol/L (98-107); Estimated CRCL calculation 78 ml/min; Estimated Glomerular Filt Rate > 60; Glucose 117 mg/dL (65-110); Sodium 139 mmol/L (137-145)
[2023-03-03] MEDS: CIPROFLOXACIN 400 MG/D5W 200ML 200 ML 200 MG IVPB (05:35)
[2023-03-03 06:00] VITALS: BP 106/62; PULSE 66; RESP 16; TEMP 36.6; O2SAT 93
[2023-03-03] MEDS: PANTOPRAZOLE 40 MG TABLET PO (08:59)
[2023-03-03] MEDS: SIMVASTATIN 10 MG TABLET PO (09:00)
--- NOTE | 2023-03-03 11:20 | PM.DS ---
DS: Admitting Diagnosis Discharge Date 03/03/2023 Admitting Diagnosis Suppurative, gangrenous cholecystitis, cholelithiasis DS: Discharge Diagnosis Discharge Diagnosis (1) Cholecystitis with cholelithiasis: Qualifiers: Cholelithiasis location: gallbladder Cholecystitis acuity: unspecified acuity Biliary obstruction: without biliary obstruction Qualified Code(s): K80.10 - Calculus of gallbladder with chronic cholecystitis without obstruction Code(s): K80.10 - Calculus of gallbladder with chronic cholecystitis without obstruction Status: Acute Assessment and Plan: doing well, continue routine postoperative care, local wound care, home with p.o. antibiotics, p.o. analgesia, follow-up 2 weeks DS: Summary Hospital Course Reason for hospitalization: acute suppurative, gangrenous cholecystitis with cholelithiasis Hospital Course: The patient is a 62-year-old male presenting to the hospital on 03/01 for cholecystectomy. In the operating room, the patient was found have acute suppurative, gangrenous cholecystitis with cholelithiasis. The patient was noted to have a large amount pus in the gallbladder itself and severe cholecystitis. Please see full operative report for details of this procedure. Given the severity of the cholecystitis the patient was admitted for observation post surgery. On postoperative day 1. , the patient continued to complain of severe abdominal pain and tenderness. I added Toradol for pain control. The patient was able to be up and ambulate and he was tolerating a low-cholesterol diet. His drain was putting a moderate amount of serosanguineous fluid and his labs were largely unremarkable. He was continued on IV antibiotics. On postoperative day 2. , patient reports that he is feeling much improved. His pain is now well controlled with p.o. analgesia. I removed his drain at bedside today. He will be sent home with p.o. analgesia and p.o. antibiotics. He will follow up with me in 2 weeks. Status at Discharge Functional status at discharge: independent ambulation Overall status at discharge: patient is progressing back to baseline Time Spent with Patient Time attestation: Total time spent providing and/or coordinating discharge services: Time spent: Less than 30 minutes Exam Const: General: cooperative, comfortable and no acute distress Resp: Auscultation: clear to auscultation bilaterally Cardio: Rate: regular rate Rhythm: regular rhythm GI: Inspection: normal to inspection and incision GI Palp: Yes abdominal tenderness, Yes Soft to palpation and Yes Tenderness to palpation present (GI) DS: Data Data Completed and Pending Completed studies during hospitalization: Pending at discharge 03/01/23 15:23 Surgical [PTH] Routine Labs on day of discharge: Labs from last 24 hours 03/03/23 04:50 WBC 11.5 H RBC 4.01 L Hgb 12.2 L Hct 38.1 L MCV 95.0 MCH 30.4 MCHC 32.0 RDW 13.1 Plt Count 369 MPV 9.6 Sodium 139 Potassium 4.0 Chloride 104 Carbon Dioxide 29 Anion Gap 6 L BUN 11 Creatinine 0.90 Estim Creat Clear Calc 78 Estimated GFR > 60 Glucose 117 H Calcium 8.8 Total Bilirubin 0.4 AST 29 ALT 52 H Alkaline Phosphatase 110 Total Protein 6.0 L Albumin 3.5 Discharge Plan Discharge Attending physician on discharge: Sudha Vargas Discharging Clinician: Sudha Vargas Anticipated Discharge Date/Time: 03/03/23 14:00 Patient Disposition: Home, Self-Care Activity: may shower and as tolerated Diet: as tolerated Wound Care Instructions: incision open to air Discharge Instructions: DISCHARGE INSTRUCTION SHEET FOR HERNIA, GALLBLADDER AND APPENDIX SURGERIES DR. VARGAS PATIENT TO TAKE HOME 1. May shower in 24 hours, no soaking in bath x 2weeks. 2. Call office for: Wound increasingly painful or bleeding Vomiting Fever of greater than 101 degrees 3. If no bowel movement for three days,
== END 2023-03-03 13:53 | disposition home or self-care (01) ==
LOC: ANH3MED 17:34
PROVIDERS: Admitting Provider Surgery; PCP Family Medicine; Visit Provider Surgery
PROC: 0FT44ZZ Resection of Gallbladder, Percutaneous Endoscopic Approach (ICD-10-PCS; CPT 47562; principal; 2023-03-01 13:30)
DX: K81.2 Acute cholecystitis with chronic cholecystitis (principal); K82.8 Other specified diseases of gallbladder; K21.9 Gastro-esophageal reflux disease without esophagitis; G89.18 Other acute postprocedural pain; R12 Heartburn; E78.5 Hyperlipidemia, unspecified; F10.90 Alcohol use, unspecified, uncomplicated; K59.00 Constipation, unspecified; Z87.891 Personal history of nicotine dependence; Z79.899 Other long term (current) drug therapy
CPT/HCPCS: 47563; 36415; 74300; 80053; 80076; 82150; 83690; 85027; 86850; 86900; 86901; 88304; 93005; A9270; G0378; J0330; J0690; J0744; J1100; J1170; J1836; J1885; J2250; J2270; J2371; J2405; J2704; J3010; J7120; Q9966